=== PATIENT | male | born 1960 | race Caucasian/White ===

== ENCOUNTER 2019-02-08 16:07 | Emergency (ER) | payer BC ==
[2019-02-08 16:13] VITALS: BP 135/81
--- NOTE | 2019-02-08 16:34 | EDPHY ---
H & P Time Seen by Provider: 02/08/19 16:17 HPI/ROS: CHIEF COMPLAINT: Right knee injury HISTORY OF PRESENT ILLNESS: Just prior to arrival the patient says that his dog when running after [employer] trailing a rope and his leg was trapped "like [place] in [place]" twisting his right foot outwards and upwards injuring his knee. He feels like it is not painful now, but it is really unstable to stand on. REVIEW OF SYSTEMS: No hip or ankle injury. No weakness or numbness in extremity foot. PAST MEDICAL HISTORY: Left leg fracture Social history: [facility] patient General Appearance: Alert and conversant, cooperative. No joint effusion or bony tenderness in the right knee. He has pain and instability with valgus stress, laxity with stress that direction, pain in the medial collateral ligament. Full range of motion of the knee actively and passively. Briana's test is negative, anterior and posterior drawer stable. Varus stress is stable. Normal motor sensory and vascular distally. Compartments are soft and thigh and calf. Emergency Department course/MDM: Likely acute MCL tear, x-ray in knee immobilizer crutches and [facility] follow-up. Smoking Status: Never smoked Constitutional: Initial Vital Signs Temperature (C) 36.6 C 02/08/19 16:11 Heart Rate 77 02/08/19 16:11 Respiratory Rate 17 02/08/19 16:11 Blood Pressure 135/81 H 02/08/19 16:11 O2 Sat (%) 97 02/08/19 16:11 O2 Delivery Mode Room Air Allergies/Adverse Reactions: No Known Allergies Allergy (Unverified 02/08/19 16:10) Home Medications: Medication Instructions Recorded NK [No Known Home Meds] 02/08/19 MDM/Departure - MDM Imaging Results: Imaging Impressions Knee X-Ray 02/08/19 16:27 Impression: There is no acute osseous abnormality identified. If there is further clinical concern regarding the patient's posttraumatic knee pain, MR imaging could be considered. Imaging: I viewed and interpreted images myself - Depart Disposition: Home, Routine, Self-Care Clinical Impression: MCL sprain of right knee Qualifiers: Encounter type: initial encounter Qualified Code(s): S83.411A - Sprain of medial collateral ligament of right knee, initial encounter Condition: Good Instructions: Knee Immobilizer (ED) Additional Instructions: followup this week with [facility] [place] orthopedics in the office. Referrals: Isidoro Muñoz MD [Primary Care Provider] - As per Instructions Vimal Stephen MD [Medical Doctor] - As per Instructions
== END 2019-02-08 17:03 | disposition home or self-care (01) ==
DX: S83.411A Sprain of medial collateral ligament of right knee, initial encounter (principal); W54.8XXA Other contact with dog, initial encounter; Y93.74 Activity, frisbee
CPT/HCPCS: L1830